=== PATIENT | male | born 1985 | race Caucasian/White ===

== ENCOUNTER 2018-04-27 07:51 | Emergency (ER) | payer SELFPAY ==
[~2018-04-27] VITALS: Ht 172.7 cm; Wt 96.0 kg
[2018-04-27] MEDS ORDERED: AMOXICILLIN500 M2 PO (08:14)
[2018-04-27] MEDS ORDERED: TORADOL PO (08:14)
[2018-04-27 08:24] VITALS: BP 112/80
== END 2018-04-27 08:31 | disposition home or self-care (01) | DRG 159 ==
LOC: ED 07:51
DX: K04.7 Periapical abscess without sinus (principal); K02.9 Dental caries, unspecified; F17.210 Nicotine dependence, cigarettes, uncomplicated

== ENCOUNTER 2018-06-02 13:00 | Emergency (ER) | payer SELFPAY ==
[~2018-06-02] VITALS: Ht 172.7 cm; Wt 100.0 kg
[~2018-06-02 13:00] MED LIST: AMOXICILLIN500 M2 PO; TORADOL PO
[2018-06-02] MEDS ORDERED: IBUPROFEN600 MG PO (13:56)
[2018-06-02] MEDS ORDERED: AMOXICILLIN875 MG PO (13:56)
[2018-06-02 13:58] VITALS: BP 103/70
== END 2018-06-02 13:58 | disposition home or self-care (01) | DRG 159 ==
LOC: ED 13:00
DX: K04.7 Periapical abscess without sinus (principal); K03.81 Cracked tooth; K02.9 Dental caries, unspecified; F17.210 Nicotine dependence, cigarettes, uncomplicated

== ENCOUNTER 2019-03-21 08:02 | Emergency (ER) | payer SELFPAY ==
[~2019-03-21] VITALS: Ht 172.7 cm; Wt 96.8 kg
[~2019-03-21 08:02] MED LIST changes: +AMOXICILLIN875 MG PO; +IBUPROFEN600 MG PO
[2019-03-21 08:17] VITALS: BP 113/74
[2019-03-21] MEDS ORDERED: AUGMENTIN875TAB PO (08:20)
== END 2019-03-21 08:35 | disposition home or self-care (01) | DRG 159 ==
LOC: ED 08:02
DX: K08.89 Other specified disorders of teeth and supporting structures (principal); K03.81 Cracked tooth; R50.9 Fever, unspecified; F17.210 Nicotine dependence, cigarettes, uncomplicated

== ENCOUNTER 2020-03-20 08:52 | Emergency (ER) | payer SELFPAY ==
[~2020-03-20 08:52] MED LIST changes: +AUGMENTIN875TAB PO
[2020-03-20 09:10] VITALS: BP 145/72
[2020-03-20] MEDS ORDERED: DICLOFENAC50 MG PO (09:12)
[2020-03-20] MEDS ORDERED: AMOXICILLIN500 M2 PO (09:12)
== END 2020-03-20 09:25 | disposition home or self-care (01) | DRG 159 ==
LOC: ED 08:52
DX: K02.9 Dental caries, unspecified (principal); F17.200 Nicotine dependence, unspecified, uncomplicated

== ENCOUNTER 2022-02-08 10:39 | Emergency (ER) | payer SELFPAY ==
[2022-02-08] VITALS (7 sets, daily range): BP systolic 99–114; BP diastolic 66–81
[~2022-02-08] VITALS: Ht 172.7 cm; Wt 89.0 kg
[~2022-02-08 10:39] MED LIST changes: +DICLOFENAC50 MG PO
[2022-02-08] MEDS ORDERED: KEFLEX500 MG PO (12:06)
[2022-02-08] MEDS ORDERED: BACTRIM DS1 TAB PO (12:06)
== END 2022-02-08 12:21 | disposition home or self-care (01) | DRG 603 ==
LOC: ED 10:39
DX: L05.01 Pilonidal cyst with abscess (principal); G40.909 Epilepsy, unspecified, not intractable, without status epilepticus; F17.200 Nicotine dependence, unspecified, uncomplicated; B95.4 Other streptococcus as the cause of diseases classified elsewhere

== ENCOUNTER 2022-03-11 07:41 | Emergency (ER) | payer SELFPAY ==
[~2022-03-11] VITALS: Ht 172.7 cm; Wt 102.0 kg
[~2022-03-11 07:41] MED LIST changes: +BACTRIM DS1 TAB PO; +KEFLEX500 MG PO
[2022-03-11 07:47] VITALS: BP 110/70
[2022-03-11 08:00] VITALS: BP 107/70
[2022-03-11] MEDS ORDERED: CLEOCIN300 MG PO (08:12)
[2022-03-11] MEDS ORDERED: HYDROCO/APAP1 TA9 PO (08:12)
[2022-03-11 08:16] VITALS: BP 102/73
[2022-03-11 08:23] VITALS: BP 102/73
== END 2022-03-11 08:30 | disposition home or self-care (01) | DRG 159 ==
LOC: ED 07:41
DX: K02.9 Dental caries, unspecified (principal); K04.7 Periapical abscess without sinus; G40.909 Epilepsy, unspecified, not intractable, without status epilepticus; F17.210 Nicotine dependence, cigarettes, uncomplicated

== ENCOUNTER 2022-03-16 05:28 | Emergency (ER) | payer SELFPAY ==
[~2022-03-16] VITALS: Ht 172.7 cm; Wt 100.0 kg
[~2022-03-16 05:28] MED LIST changes: +CLEOCIN300 MG PO; +HYDROCO/APAP1 TA9 PO
[2022-03-16 05:37] VITALS: BP 123/90
[2022-03-16 05:45] VITALS: BP 127/87
[2022-03-16] MEDS ORDERED: AMOX/K CLAV875 M1 PO (05:58)
[2022-03-16 06:01] VITALS: BP 122/86
== END 2022-03-16 06:05 | disposition home or self-care (01) | DRG 159 ==
LOC: ED 05:28
DX: K02.9 Dental caries, unspecified (principal); K04.7 Periapical abscess without sinus; G40.909 Epilepsy, unspecified, not intractable, without status epilepticus; F17.200 Nicotine dependence, unspecified, uncomplicated

== ENCOUNTER 2022-05-06 13:37 | Emergency (ER) | payer SELFPAY ==
[~2022-05-06] VITALS: Ht 172.7 cm; Wt 102.0 kg
[2022-05-06] VITALS (10 sets, daily range): BP systolic 99–139; BP diastolic 49–115
[~2022-05-06 13:37] MED LIST changes: +AMOX/K CLAV875 M1 PO
[2022-05-06] MEDS ORDERED: TRAMADOL HCL50 MG PO (16:39)
[2022-05-06] MEDS ORDERED: NAPROXEN500 MG PO (16:39)
[2022-05-06] MEDS ORDERED: AMOX/K CLAV875 M1 PO (16:39)
== END 2022-05-06 16:50 | disposition home or self-care (01) | DRG 158 ==
LOC: ED 13:37
DX: K04.7 Periapical abscess without sinus (principal); M84.68XA Pathological fracture in other disease, other site, initial encounter for fracture; K02.9 Dental caries, unspecified; F17.210 Nicotine dependence, cigarettes, uncomplicated

== ENCOUNTER 2022-05-26 07:27 | Emergency (ER) | payer SELFPAY ==
[~2022-05-26] VITALS: Ht 172.7 cm; Wt 102.0 kg
[~2022-05-26 07:27] MED LIST changes: +NAPROXEN500 MG PO; +TRAMADOL HCL50 MG PO
[2022-05-26 07:53] VITALS: BP 109/84
[2022-05-26 08:00] VITALS: BP 124/82
[2022-05-26] MEDS ORDERED: AMOX/K CLAV875 M1 PO (08:04)
[2022-05-26] MEDS ORDERED: EC-NAPROXEN500 MG PO (08:04)
[2022-05-26 08:08] VITALS: BP 124/82
== END 2022-05-26 08:18 | disposition home or self-care (01) | DRG 159 ==
LOC: ED 07:27
DX: K02.9 Dental caries, unspecified (principal); K04.7 Periapical abscess without sinus; G40.909 Epilepsy, unspecified, not intractable, without status epilepticus; F17.210 Nicotine dependence, cigarettes, uncomplicated